=== PATIENT | female | born 1945 | race Caucasian/White ===

== ENCOUNTER 2016-10-06 09:21 | Day surgery (SDC) | payer OTHER ==
--- NOTE | ~2016-10-06 | EGD ---
EGD REPORT [facility] [address] [address] NAME: RONEN MARIO : [birth year] [place] [facility] [place] [id number] AGE: 71 ADM/REG DATE : 10/06/16 MR#: [id number] REPORT SERV DATE: 10/06/16 DICTATED BY: CAROLYN BARRERA DATE: 10/06/16 REPORT STATUS : Draft TRANSCRIBED BY: [facility] DATE: 10/06/16 Endoscopy Center Patient Name: Ronen Mario Date of : 1945 Attending MD: CAROLYN BARRERA MD Procedure Date No Time: 10/06/2016 Procedure: Upper GI endoscopy Indications: Dysphagia, Heartburn, Suspected esophageal reflux Referring MD: CAROLYN PORTILLO MD Medicines: as per anesthesia Complications: No immediate complications. Procedure: Pre-Anesthesia Assessment: - ASA Grade Assessment: III - A patient with severe systemic disease. After obtaining informed consent, the endoscope was passed under direct vision. Throughout the procedure, the patient's blood pressure, pulse, and oxygen saturations were monitored continuously. The GIF [id number] was introduced through the mouth, and advanced to the third part of duodenum. The upper GI endoscopy was accomplished without difficulty. The patient tolerated the procedure. Findings: A mild Schatzki ring (acquired) was found at the gastroesophageal junction. The scope was withdrawn. Dilation was performed with a Chun dilator with no resistance at 46 Fr. The entire examined stomach was normal. The cardia and gastric fundus were normal on retroflexion. The examined duodenum was normal. Impression: - Mild Schatzki ring. Dilated. - Normal stomach. - Normal examined duodenum. Recommendation: - Follow an antireflux regimen. - Continue present medications. Procedure Code(s): --- Professional --- 49899, Esophagogastroduodenoscopy, flexible, transoral; diagnostic, including collection of specimen(s) by brushing or washing, when performed (separate procedure) 18269, Dilation of esophagus, by unguided sound or bougie, single or multiple passes EGD REPORT [facility] [address] [facility] [place] [address] NAME: RONEN MARIO : [birth year] [place] [facility] [place] [id number] AGE: 71 ADM/REG DATE : 10/06/16 MR#: [id number] REPORT SERV DATE: 10/06/16 DICTATED BY: CAROLYN BARRERA. DATE: 10/06/16 REPORT STATUS : Draft TRANSCRIBED BY: [employer] DATE: 10/06/16 Diagnosis Code(s): --- Professional --- K22.2, Esophageal obstruction R13.10, Dysphagia, unspecified R12, Heartburn CPT copyright 2013 [employer]. All rights reserved. The codes documented in this report are preliminary and upon farm laborer review may be revised to meet current compliance requirements. CAROLYN BARRERA MD 10/06/2016 12:26 PM This report has been signed electronically. Number of Addenda: 0 Note Initiated On: 10/06/2016 12:01 PM Scope Withdrawal Time 0 hours 0 minutes 0 seconds [address] [place] [address]
[~2016-10-06 09:21] MED LIST: ASAB PO; BIOTIN10 MG OR; CALTRAT600 PO; CHLORZOXAZON500 MG OR; CO Q-10100 MG PO; COQ10100 MG OR; DCN100 PO; DIOVAN HC1 PO; FISH OIL300 MG PO; LEXAPRO20 PO; LIPITOR20 PO; LOP100 PO; LORTAB 5 PO; LOVAZA1 GM PO; MAG OXIDE250 MG PO; MICROZIDE PO; MOBIC7.5 PO; MULTIPLE VIT PO; MULTIVITAMI1 PO; NEXIUM40 PO; PRILO PO; SYN112 PO; SYN88 PO; T PO; VASOTEC20 MG PO; VITAMIN D31000 UNIT PO; ZYRTEC ALLGY10 MG PO; [UNRECOGNIZED DRUG - MIXTURE] SL
== END 2016-10-06 23:59 | disposition home or self-care (01) ==
LOC: DMU 09:21
PROVIDERS: Internal Medicine Gastroenterology
PROC: 0D747ZZ Dilation of Esophagogastric Junction, Via Natural or Artificial Opening (ICD-10-PCS; principal; 2016-10-06 11:00)
DX: K22.2 Esophageal obstruction (principal); R12 Heartburn; R13.10 Dysphagia, unspecified; I10 Essential (primary) hypertension; G47.33 Obstructive sleep apnea (adult) (pediatric); Z88.5 Allergy status to narcotic agent; Z88.8 Allergy status to other drugs, medicaments and biological substances
CPT/HCPCS: J0290; J1580